=== PATIENT | male | born 1970 | race Hispanic/Latino ===

== ENCOUNTER 2020-09-30 14:36 | Emergency (ER) | payer OTHER ==
[~2020-09-30] VITALS: Ht 182.9 cm; Wt 145.1 kg
[2020-09-30] MEDS ORDERED: CEPHALEXIN 500 MG CAPSULE PO ONE (15:30)
[2020-09-30 15:31] LABS: BASOPHILS % (AUTO) 0.8 % (0.0-5.0); EOSINOPHILS % (AUTO) 2.9 % (0.0-8.0); HEMATOCRIT 48.4 % (42-54); LYMPHOCYTES % (AUTO) 24.8 % (21.0-51.0); MEAN CORPUSCULAR HGB CONC 32.4 g/dL (32.0-36.0); MEAN CORPUSCULAR VOLUME 86.4 fL (79-99); MONOCYTES % (AUTO) 8.2 % (3.0-13.0); NEUTROPHILS % (AUTO) 62.6 % (40.0-77.0); PLATELET COUNT (AUTO) 222 K/uL (130-400); RED CELL DISTRIBUTION WIDTH 13.5 % (11.0-15.5); WHITE BLOOD COUNT (AUTO) 7.2 K/uL (4.8-10.8)
[2020-09-30 15:54] LABS: ALBUMIN 3.3 g/dL (3.5-5.0); BILIRUBIN,TOTAL 0.8 mg/dL (0.2-1.0); CREATININE 1.2 mg/dL (0.5-1.5); POTASSIUM 4.1 mmol/L (3.5-5.1); TOTAL PROTEIN, SERUM 7.5 g/dL (6.0-8.3)
[2020-09-30] MEDS ORDERED: 0.9%NACL 50ML 50 ML IV ONE (16:00)
[2020-09-30] MEDS ORDERED: INSULIN HUMULIN R 100 UNIT/ML 3ML IV ONE ×2 (16:00→18:00)
[2020-09-30] MEDS ORDERED: 0.9%NACL 1000ML 1,000 ML IV ONE (16:00)
[2020-09-30] MEDS ORDERED: ZOSYN 3.375GM +NS 50ML IV ONE (16:00)
[2020-09-30] MEDS ORDERED: FLUCONAZOLE 100 MG TAB PO ONE (17:00)
[2020-09-30] MEDS ORDERED: 0.9% NACL 500ML IV.SOLN 500 ML IV ONE (17:41)
[2020-09-30] MEDS: INSULIN HUMULIN R 100 UNIT/ML 3ML ONE ×2 (17:53→18:15)
[2020-09-30] MEDS: 0.9% NACL 500ML IV.SOLN 500 ML IV SCH ×2 (18:00→19:14)
[2020-09-30] MEDS ORDERED: CEPH500B PO (18:54)
[2020-09-30] MEDS ORDERED: FLUC150T PO (18:54)
[2020-09-30] MEDS ORDERED: MUPI22O TP (18:54)
[2020-09-30] MEDS ORDERED: METF-444 PO (18:54)
[2020-09-30 19:25] VITALS: BP 119/73
[2020-09-30 22:59] LABS: BASE EXCESS,VENOUS BLOOD GAS 1.5 (-2.0-3.0); HCO3,VENOUS BLOOD GAS 26.1 (21.0-28.0); PCO2,VENOUS BLOOD GAS 41 (35-48); PH,VENOUS BLOOD GAS 7.422 (7.350-7.450)
== END 2020-09-30 19:27 | disposition home or self-care (01) ==
LOC: EDH 14:36
DX: L73.8 Other specified follicular disorders (principal); N48.1 Balanitis; E11.65 Type 2 diabetes mellitus with hyperglycemia; E66.01 Morbid (severe) obesity due to excess calories; Z79.4 Long term (current) use of insulin
CPT/HCPCS: 36415; 36600; 80053; 82803; 82948 ×3; 83605; 85025; 87040 ×2; 96361; 96365; 96366; 96375; 96376; 99284; J1815 ×2; J2543; J7030; J7040